=== PATIENT | male | born 1945 | race Caucasian/White ===

== ENCOUNTER → 2020-06-04 11:50 | Outpatient (CLI) | payer MEDICARE, OTHER, SELFPAY ==
--- NOTE | 2020-06-04 | DI.MRI.S_ITS ---
PROCEDURE: MR SHOULDER RT WO CON INDICATIONS: contusion TECHNIQUE: Noncontrast oblique coronal T2 fast spin echo with fat saturation, oblique sagittal T1 spin echo and T2 fast spin echo with fat saturation, axial T1 spin echo and T2 fast spin echo with fat saturation through the shoulder. COMPARISON: [facility], MR, MR SHOULDER LT WO CON, 06/04/2020, 12:04. FINDINGS: Image quality: Suboptimal secondary to postsurgical changes and scattered micro metallic susceptibility artifact. Rotator cuff: Full-thickness infraspinatus tear is noted measuring approximately 1.8 cm on the sagittal pulse sequences. There is also and full-thickness tear of the supraspinatus tendon, which is poorly visualized although probably measures at least 1.3 cm in the AP dimension on sagittal pulse sequences. Teres minor tendon appears intact although mild tendinopathy. There is thickening of the subscapularis tendon, with intrasubstance signal changes suggesting tendinopathy and or postsurgical sequela. Low-grade articular and bursal surface fraying is noted.Atrophy of the supraspinatus and infraspinatus muscles. Fatty infiltration of the teres minor. Bones and bursae: No bone marrow contusions or fractures. 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 Acromion demonstrates conventional anatomy, without an os acromiale. Capsule and soft tissues: Labrum: Circumferential macerated appearance of the labrum which is likely chronic.. Long head biceps tendon not well seen. Obliteration of the subcoracoid fat signal intensity. Coracohumeral ligament intact. IMPRESSION: Full-thickness tear of the supraspinatus and infraspinatus tendons. Atrophy of the supraspinatus and infraspinatus muscles. Subscapularis tendinopathy and/or postsurgical sequela. Low-grade articular and bursal surface fraying. Advanced joint degeneration, and moderate joint effusion. Circumferential macerated appearance of the labrum which is likely reflective of tear and or postsurgical sequela. No definite marrow signal changes to suggest contusion. Dictated by: Kristian Burton M.D. on 06/04/2020 at 14:12 Approved by: Kristian Burton M.D. on 06/04/2020 at 14:19
--- NOTE | 2020-06-04 | DI.MRI.S_ITS ---
PROCEDURE: MR SHOULDER LT WO CON INDICATIONS: impingement TECHNIQUE: Noncontrast oblique coronal T2 fast spin echo with fat saturation, oblique sagittal T1 spin echo and T2 fast spin echo with fat saturation, axial T1 spin echo and T2 fast spin echo with fat saturation through the shoulder. COMPARISON: None. FINDINGS: Image quality: Excellent. Rotator cuff: Poorly defined although suspect full-thickness tear of the infraspinatus tendon. There is also tendinopathy and interstitial tearing extending to the musculotendinous junction although the exact tendon stump is not well visualized. There is also probable full-thickness poorly defined tear of the supraspinatus tendon. Exact measurements are difficult secondary to suboptimal visualization Teres minor tendon appears intact. There is thickening of the subscapularis tendon and partial thickness articular sided tear. Severe atrophy of the supraspinatus and infraspinatus muscles. Bones and bursae: No bone marrow contusions or fractures. Moderate acromioclavicular joint degeneration. Acromion demonstrates conventional anatomy, without an os acromiale. Minimal subacromial-subdeltoid bursitis. Capsule and soft tissues: Labrum: Circumferential labral fraying and degeneration, with possibility of superimposed surgical sequela although recommend correlation with operative notes. There is posterior labral tear, with associated paralabral cyst in the spinoglenoid notch measuring approximately 8 x 5 mm on sagittal image 09/03. Long head of the biceps tendon not well seen. The rotator interval appears normal, without fibrosis. Coracohumeral ligament intact. IMPRESSION: Poorly defined (likely chronic) full-thickness tear of the supraspinatus and infraspinatus tendons as detailed above. Atrophy of the respective muscles. Subscapularis tendinopathy and partial-thickness articular sided tear. Superimposed postoperative appearance is in the differential therefore please correlate with operative notes Circumferential labral degeneration and fraying, possibly superimposed postsurgical effects. Prominent posterior labral signal abnormalities, likely reflecting de tawana or recurrent labral tear. Associated 8 mm paralabral cyst in the spinoglenoid notch. Long head biceps tendon not well seen and probably ruptured versus postsurgical change. Dictated by: Kristian Burton M.D. on 06/04/2020 at 13:05 Approved by: Kristian Burton M.D. on 06/04/2020 at 14:12
== END ==
PROVIDERS: PCP Family Medicine; Referring Provider Orthopaedic Surgery; Visit Provider Orthopaedic Surgery
DX: M75.42 Impingement syndrome of left shoulder (principal); M19.012 Primary osteoarthritis, left shoulder; M75.122 Complete rotator cuff tear or rupture of left shoulder, not specified as traumatic; S40.011A Contusion of right shoulder, initial encounter; M75.121 Complete rotator cuff tear or rupture of right shoulder, not specified as traumatic; M19.011 Primary osteoarthritis, right shoulder
CPT/HCPCS: 73221